=== PATIENT | female | born 2005 | race Caucasian/White ===

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

== ENCOUNTER 2024-10-30 13:34 | Outpatient (CLI) | payer BC, SELFPAY ==
--- NOTE | ~2024-10-30 | MR_ITS ---
EXAMINATION: MR knee LT wo con DATE: 10/30/2024 14:07 INDICATION: Left knee pain. Prominent meniscus. TECHNIQUE: Magnetic resonance imaging (MRI) of the left knee was performed without intravenous contra st. Sequences included coronal PD-weighted FSE, coronal PD-weighted FS FSE, sagittal T2-weighted FSE , sagittal PD-weighted FS FSE and axial PD weighted fat saturated FSE. COMPARISON: None. FINDINGS: Medial compartment: Medial meniscus is normal. Articular cartilage is normal. Lateral compartment: Lateral meniscus is normal. Articular cartilage is normal. Patellofemoral compartment: Articular cartilage is normal. Ligaments and tendons: Anterior and posterior cruciate ligaments are normal. The medial collateral ligament and fibular tonya ateral ligament complex are normal. The extensor mechanism is normal. The visualized medial and later al hamstring tendons as well as the iliotibial band are normal. Fluid: Physiologic amount of fluid in the joint space. No loose osteochondral bodies identified. Moderate si zed Yañez's cyst measuring 6.0 cm craniocaudally length and measuring up to 1.7 x 0.8 cm maximal montoya saxial dimensions. Osseous/other: Normal marrow signal. No fracture or pathologic marrow replacing process. IMPRESSION: 1. Moderate-sized Yañez's cyst. Otherwise unremarkable left knee MRI with normal menisci, cartilage a nd stabilizing ligaments. Reviewed, dictated and finalized at location A. IMPRESSION: 1. Moderate-sized Yañez's cyst. Otherwise unremarkable left knee MRI with jay l menisci, cartilage and stabilizing ligaments.
== END 2024-10-30 13:35 | disposition home or self-care (01) ==
PROVIDERS: PCP Orthopaedic Surgery; Visit Provider Orthopaedic Surgery
DX: M71.22 Synovial cyst of popliteal space [Baker], left knee (principal)
CPT/HCPCS: 73721